=== PATIENT | female | born 1990 | race Caucasian/White ===

== ENCOUNTER 2018-09-19 22:10 | Emergency (ER) | payer OTHER ==
[~2018-09-19] VITALS: Ht 160 cm; Wt 54.4 kg
[~2018-09-19 22:10] MED LIST: BACTRIM DS TAB1 EACH
[2018-09-19 22:44] VITALS: BP 109/72
== END 2018-09-19 22:45 | disposition home or self-care (01) ==
LOC: M.ERS 22:10
DX: S50.11XA Contusion of right forearm, initial encounter (principal); Z88.1 Allergy status to other antibiotic agents; W18.39XA Other fall on same level, initial encounter; Y92.89 Other specified places as the place of occurrence of the external cause; Y93.89 Activity, other specified; Y99.8 Other external cause status

== ENCOUNTER 2018-11-01 06:16 | Emergency (ER) | payer OTHER ==
[~2018-11-01] VITALS: Ht 160 cm; Wt 54.4 kg
[2018-11-01] MEDS ORDERED: VALTREX 500 MG500 M1 PO (06:33)
[2018-11-01 07:03] LABS: URINE BILIRUBIN NEGATIVE (Negative); URINE BLOOD 3+ (Negative); URINE CLARITY SL CLOUDY; URINE COLOR YELLOW; URINE GLUCOSE-RANDOM NEGATIVE (Negative); URINE KETONES TRACE (Negative); URINE LEUKOCYTES-REFLEX NEGATIVE (Negative); URINE NITRITE-REFLEX NEGATIVE (Negative); URINE PROTEIN 2+ (Negative); URINE SPECIFIC GRAVITY >= 1.030 (1.005-1.030); URINE UROBILINOGEN 0.2 E.U./dl (0.2-1.0)
[2018-11-01 07:08] LABS: SQUAMOUS >10 Many /LPF (0-3)
[2018-11-01 07:11] LABS: MUCUS >6 Heavy strn/LPF (None Seen); URINE RBC 3-10 Few /HPF (0-2); URINE WBC-REFLEX 0-5 Rare /HPF (0-5)
[2018-11-01 07:12] LABS: AMORPHOUS URATES Many /LPF (None Seen); CASTS None Seen /LPF (None Seen)
[2018-11-01 07:48] LABS: ABSOLUTE EOSINOPHILS 0.1 thou/uL (0.0-0.7); ABSOLUTE LYMPHOCYTES 1.7 thou/uL (0.8-5.3); ABSOLUTE MONOCYTES 0.7 thou/uL (0.0-1.2); ABSOLUTE NEUTROPHILS 7.2 thou/uL (1.6-8.1); BASOPHILS 0.3 %; EOSINOPHILS 0.7 %; HEMATOCRIT 38.8 % (37.0-47.0); HEMOGLOBIN 12.9 gm/dL (12.0-15.0); LYMPHOCYTES 17.2 %; MCH 28.9 pg (26.0-34.0); MCHC 33.3 g/dL (28.0-37.0); MCV 86.9 fL (80.0-100.0); MONOCYTES 6.9 %; MPV 8.6 fl. (7.2-11.1); NUCLEATED RBCS 0 /100WBC; PLATELET COUNT* 235 thou/uL (150-400); POLYS 74.9 %; RBC 4.46 mil/uL (4.20-5.00); RDW-CV 14.3 % (10.5-14.5); WBC 9.6 thou/uL (4.0-11.0)
[2018-11-01 07:58] LABS: CALCIUM 8.2 mg/dL (8.5-10.1); CREATININE 0.9 mg/dL (0.6-1.3); POTASSIUM 3.4 mmol/L (3.5-5.1)
[2018-11-01 08:02] LABS: ALBUMIN 3.5 g/dL (3.4-5.0); TOTAL BILIRUBIN 0.7 mg/dL (<0.1-1.0); TOTAL PROTEIN 6.7 g/dL (6.4-8.2)
[2018-11-01] MEDS ORDERED: CIPROFLOXACIN500 M1 PO (09:16)
[2018-11-01] MEDS ORDERED: FLOMAX0.4 MG PO (09:16)
[2018-11-01] MEDS ORDERED: NORCO 5-325 TA1 EAC1 PO (09:16)
[2018-11-01 09:26] VITALS: BP 100/65
== END 2018-11-01 09:26 | disposition home or self-care (01) ==
LOC: M.ERS 06:16
PROVIDERS: Emergency Medicine; Family Medicine
DX: N20.0 Calculus of kidney (principal); Z88.1 Allergy status to other antibiotic agents